=== PATIENT | female | born 1980 | race Caucasian/White ===

== ENCOUNTER 2019-04-24 09:17 | Inpatient (IN) | payer MEDICAID ==
[2019-04-24 12:52] LABS: ADD MAN DIFF? NO
[2019-04-24 12:56] LABS: ABNORMAL IP MESSAGE 1; BASOPHILS % 0.5 % (0.0-2.0); EOSINOPHILS % 0.5 % (0.0-7.0); HEMATOCRIT 33.5 % (37.0-47.0); HEMOGLOBIN 11.3 g/dl (12.0-16.0); LYMPHOCYTES # 1.4 10^3/ul (0.8-2.9); LYMPHOCYTES % 25.8 % (15.0-51.0); MEAN CORPUSCULAR HEMOGLOBIN 28.5 pg (29.0-33.0); MEAN CORPUSCULAR HGB CONC 33.7 g/dl (32.0-37.0); MEAN CORPUSCULAR VOLUME 84.4 fl (82.0-101.0); MONOCYTE # 0.4 10^3/ul (0.3-0.9); MONOCYTES % 7.3 % (0.0-11.0); NEUTROPHIL # 3.5 10^3/ul (1.6-7.5); NEUTROPHILS % 64.8 % (39.0-77.0); PLATELET COUNT 141 10^3/UL (140-415); RED BLOOD COUNT 3.97 10^6/ul (4.20-5.40)
[2019-04-24 12:56] LABS: WHITE BLOOD COUNT 5.5 10^3/ul (4.8-10.8)
[2019-04-24] MEDS ORDERED: LIDOCAINE 1% (MPF) 30 ML INJ INJ (13:00)
[2019-04-24] MEDS ORDERED: IBUPROFEN 600 MG TAB PO (13:00)
[2019-04-24] MEDS ORDERED: OXYTOCIN 30 UNITS/LR 500 ML IV ×3 (13:00→23:00)
[2019-04-24] MEDS ORDERED: MISOPROSTOL 200 MCG TAB PR ×2 (13:00→23:00)
[2019-04-24] MEDS ORDERED: METHYLERGONOVINE 0.2 MG INJ IM ×2 (13:00→23:00)
[2019-04-24] MEDS ORDERED: CARBOPROST 250 MCG INJ IM ×2 (13:00→23:00)
[2019-04-24] MEDS ORDERED: BUTORPHANOL 2 MG INJ IV (13:00)
[2019-04-24 13:05] LABS: POSITIVE DIFF @See below
[2019-04-24 13:13] LABS: GLUCOSE 71 mg/dl (70-220)
[2019-04-24 13:25] LABS: INR 0.85; PROTIME 11.7 Sec (11.9-14.9); PT RATIO 0.9
[2019-04-24 13:26] LABS: PARTIAL THROMBOPLASTIN TIME 26.9 Sec (23.0-35.0)
[2019-04-24 13:43] LABS: HEPATITIS B SURFACE ANTIGEN NEGATIVE (NEGATIVE)
[2019-04-24] MEDS: LACTATED RINGER'S 1,000 ML IV ×3 (15:23→18:08)
[2019-04-24] MEDS: BUTORPHANOL 2 MG INJ IV (18:01)
[2019-04-24] MEDS: ACETAMINOPHEN 500 MG TAB PO (20:03)
[2019-04-24 20:41] LABS: RAPID PLASMA REAGIN NONREACTIVE (NR)
[2019-04-24] MEDS: OXYTOCIN 30 UNITS/LR 500 ML IV ×2 (21:05→21:07)
[2019-04-24] MEDS: KETOROLAC 30 MG INJ IV (21:59)
[2019-04-24] MEDS ORDERED: HYDROCODONE/APAP (5/325) TAB PO ×2 (23:00)
[2019-04-24] MEDS ORDERED: ZOLPIDEM 5 MG TAB PO (23:00)
[2019-04-25] MEDS: LACTATED RINGER'S 1,000 ML IV* ×2 (00:36→06:39)
[2019-04-25] MEDS: BENZOCAINE 20% 56 ML SPRAY TOP (00:38)
[2019-04-25] MEDS: LANOLIN HPA 1 PKT TOP (00:38)
[2019-04-25] MEDS: IBUPROFEN 600 MG TAB PO ×4 (00:38→18:00)
[2019-04-25] MEDS: WITCH HAZEL/GLYCERIN PAD PR (00:38)
[2019-04-25] MEDS: DIBUCAINE 1% 30 GM OINT TOP (00:39)
[2019-04-25] MEDS: ACCU-CHEK XX (06:00)
[2019-04-25 08:37] LABS: ADD MAN DIFF? NO
[2019-04-25 08:44] LABS: WHITE BLOOD COUNT 12.4 10^3/ul (4.8-10.8)
[2019-04-25 08:44] LABS: ABNORMAL IP MESSAGE 1; BASOPHILS % 0.2 % (0.0-2.0); EOSINOPHILS % 0.3 % (0.0-7.0); HEMATOCRIT 30.1 % (37.0-47.0); HEMOGLOBIN 10.1 g/dl (12.0-16.0); LYMPHOCYTES # 2.1 10^3/ul (0.8-2.9); MEAN CORPUSCULAR HEMOGLOBIN 28.1 pg (29.0-33.0); MEAN CORPUSCULAR HGB CONC 33.6 g/dl (32.0-37.0); MEAN CORPUSCULAR VOLUME 83.6 fl (82.0-101.0); MEAN PLATELET VOLUME 13.7 fl (7.4-10.4); MONOCYTE # 1.2 10^3/ul (0.3-0.9); MONOCYTES % 9.8 % (0.0-11.0); NEUTROPHIL # 8.9 10^3/ul (1.6-7.5); NEUTROPHILS % 71.7 % (39.0-77.0); PLATELET COUNT 111 10^3/UL (140-415)
[2019-04-25 08:47] LABS: POSITIVE DIFF @See below
[2019-04-25] MEDS: MAGNESIUM HYDROXIDE 30ML CUP PO ×2 (09:00→21:09)
[2019-04-25] MEDS: SENNA/DOCUSATE NA (8.6MG/50MG) TAB PO ×2 (11:37→21:09)
[2019-04-26] MEDS: LACTATED RINGER'S 1,000 ML IV* ×3 (01:17→06:44)
[2019-04-26] MEDS: ACCU-CHEK XX ×6 (01:17→11:00)
[2019-04-26] MEDS: IBUPROFEN 600 MG TAB PO ×3 (05:55→12:00)
[2019-04-26] MEDS: MAGNESIUM HYDROXIDE 30ML CUP PO (09:41)
[2019-04-26] MEDS: SENNA/DOCUSATE NA (8.6MG/50MG) TAB PO (09:41)
[2019-04-26] MEDS: VARICELLA VACCINE LIVE/PF 1,350 UNIT/0.5 ML ML SC* (09:54)
[2019-04-26] MEDS: DIPHTH/TET/ACEL PERTUSS (ADULT) 0.5 ML VIAL IM* (09:54)
[2019-04-26] MEDS: MEASLES,MUMPS,RUBELLA VACCINE INJ SC* (10:40)
== END 2019-04-26 13:00 | disposition home or self-care (01) | DRG 807 ==
LOC: OBT 09:17 → L-D 09:19 → OBT 12:05 → L-D 12:06 → PP1 22:10
PROVIDERS: Obstetrics & Gynecology
PROC: 10E0XZZ Delivery of Products of Conception, External Approach (ICD-10-PCS; principal; 2019-04-24)
DX: O24.419 Gestational diabetes mellitus in pregnancy, unspecified control (principal); Z37.0 Single live birth; Z3A.38 38 weeks gestation of pregnancy
CPT/HCPCS: 76815; 76818; 82947; 82962; 85025; 85610; 85730; 86592; 86850; 86900; 86901; 87340; 90716

== ENCOUNTER 2019-04-30 16:46 | Emergency (ER) | payer MEDICAID | END 2019-04-30 17:26 | disposition home or self-care (01) | LOC: E/R 16:46 | DX: G51.0 Bell's palsy (principal) | CPT/HCPCS: 99283; Z7502 ==